=== PATIENT | male | born 1970 ===

== ENCOUNTER 2016-04-29 23:42 | Emergency (ER) | payer OTHER ==
[~2016-04-29] VITALS: Ht 188 cm; Wt 73.9 kg
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
[2016-04-30 02:36] VITALS: BP 126/77
== END 2016-04-30 02:36 ==
LOC: ERH 23:42
DX: R41.3 Other amnesia (principal); R51 Headache; M79.604 Pain in right leg; M79.605 Pain in left leg; V89.2XXA Person injured in unspecified motor-vehicle accident, traffic, initial encounter; Y93.9 Activity, unspecified; Y92.411 Interstate highway as the place of occurrence of the external cause
CPT/HCPCS: 73562-LT; 73562-RT; 74177